=== PATIENT | male | born 1940 | race Caucasian/White ===

== ENCOUNTER 2020-05-07 09:03 | Day surgery (SDC) | payer OTHER, MEDICARE ==
[2020-05-06 11:17] VITALS: BMI 26.6
[2020-05-07 09:23] LABS: BASO % 0.5 % (0-2.0); EOS % 3.8 % (0-4.5); HEMATOCRIT 39.9 % (35.4-49); HEMOGLOBIN 13.7 GM/dL (11.7-16.9); LYMPH % 41.7 % (8-40); MCH 32.4 pg (25.7-33.7); MCHC 34.4 g/dl (32.0-35.9); MEAN CELL VOLUME 94.3 fl (80-96); MEAN PLT VOLUME 7.3 fl (7.5-11.1); MONO % 8.2 % (3.8-10.2); NEUT % 45.8 % (42.8-82.8); PLATELET COUNT 68 K/MM3 (134-434); RBC 4.24 M/mm3 (4.00-5.60); RDW 13.7 % (11.9-15.9); WHITE BLOOD COUNT 4.2 K/mm3 (4.0-10.0)
[2020-05-07 09:29] LABS: INR 0.99 (0.83-1.09); PROTHROMBIN TIME (PATIENT) 11.7 SEC (9.7-13.0)
[2020-05-07 13:40] VITALS: BP 170/78; PULSE 73; TEMP 97.7
--- NOTE | 2020-05-16 15:02 | PATH ---
Surgical Pathology Report Patient Name: ALEX LEGGETT [facility]. Rec. #: [id number] /Age/Gender: 1940 (Age: 80) / M Account: [id number] Location: RADIOLOGY INTER Taken: 05/07/2020 Received: 05/07/2020 Reported: 05/16/2020 Physicians: Rach Yun M.D. Specimen(s) Received A: BONE MARROW BIOPSY B: BONE MARROW CLOT C: BONE MARROW ASPIRATION SMEARS 13 SLIDES D: BONE MARROW BLOOD 2 LAVENDER 2 GREEN Clinical History Splenomegaly, decreased platelets count, rule out lymphoproliferative disorder, rule out myeloproliferative disorder Final Diagnosis BONE MARROW MORPHOLOGY performed and interpreted at [facility] shows the following: DIAGNOSIS: BONE MARROW, SITE NOT SPECIFIED, ASPIRATE SMEARS: - Paucispicular and hypocellular aspirate smears with trilineage hematopoiesis. Megakaryocytes are mildly increased. Lymphoid aggregates and atypical lymphoid cells are not identified. - Increased iron stores ADDENDUM (05-15-2020) BONE MARROW, BIOPSY AND ASPIRATE SMEARS: - Hypercellular marrow (ranging from ~50-80% cellularity) with maturing trilineage hematopoiesis and mild megakaryocytic hyperplasia -Atypical lymphoid infiltrate. See Comment - Plasma cels (<5%) are polytypic Comment: Overt dysplastic features are not seen in the myeloid and megakaryocytic cells. Occasional erythroid precursors exhibit nuclear budding (<10%). NOTE: The aspirate smears are prepared in-house, and prolonged exposure of cells to anticoagulant before smear preparation may hinder accurate morphologic analysis. Correlation with a morphologic examination of the core/clot biopsy specimen and freshly prepared bone marrow aspirate smears is recommended. Flow cytometry shows evidence of myelodyspoiesis, monocytic dyspoiesis (4%), and ~1% dyspoietic myeloblasts. 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 Pending cytogenetic and molecular studies will be helpful; a summary report will follow. ADDENDUM COMMENT (05-15-2020): Overt morphologic features diagnostic of a myelodysplastic syndrome or a myeloproliferative neoplasm are not identified; pending cytogenetic and molecular data will be helpful; a summary report will follow. Multiple, interstitial lymphoid aggregates are present comprising ~10% of marrow cellularity. They are a mixture of small B-cells and small T-cells, and are not diagnostic of an involvement by lymphoma. In addition, a few paratrabecular lymphoid aggregates are noted; these are atypical. 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 Therefore, an involvement by a B-cell lymphoma cannot be excluded. Correlation with relevant clinical and laboratory findings is recommended See [facility] report for additional details. IMMUNOGLOBULIN HEAVY CHAIN (IGH) GENE REARRANGEMENT by PCR ANALYSIS performed and interpreted at [facility] shows the following: RESULTS: Clonal B-cell population detected. INTERPRETATION: POSITIVE for a clonal IgH gene rearrangement. COMMENT: Positive results most often indicate a B-cell malignancy. Rarely, positive results may be seen in non-malignant conditions. Results should be interpreted in the context of clinical status and correlation with cytogenetics, morphology, flow cytometry, and immunophenotype.This analysis can detect abnormal populations comprising >1-2% of the total cells present in the sample. See [facility] report for additional details. FLOW CYTOMETRY performed and interpreted at [facility] ([id number]) shows the following: INTERPRETATION: BONE MARROW ASPIRATE: - Immunophenotypic evidence of myelodyspoiesis, monocytic dyspoiesis (4%), and ~1% dyspoietic myeloblasts. - A minor subset of the B-cells (<1% of total cells) co-expresses CD5 and CD23 and shows an excess of surface kappa light chain. - See Comment and Phenotype. COMMENT: Although the myeloid finding is non-specific, a myeloid neoplasm is in the differential. 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 Ancillary studies are pending (see below). The percent blasts determined by flow cytometry may not be accurate due to an unknown degree of hemodilutional effects and incomplete red cell lysis. Correlation with CBC data, peripheral blood smear review, flow cytometry of peripheral blood, and bone marrow morphology is recommended. PHENOTYPE: Based on CD45 vs side scatter gating the percentage of granulocytes, lymphocytes, monocytes, immature hematopoietic cells, and CD45 negative cells are provided in the dot plot shown below. The myeloid population shows abnormal maturational patterns with CD13/CD16 and CD33/CD13 and a subset is CD56(+). Approximately 1% of the cells express CD45 (dim), CD13, CD34, CD117, and HLA-DR, consistent with myeloblasts; a subset is CD56(+). Approximately 4% of the cells express CD45 (bright), CD14, and CD64, consistent with monocytes. They co-express CD56 and CD23. Of the total cells approximately 9% are T-cells, 1% B-cells, and 1% NK cells. The majority of the B-cells is polyclonal without atypical antigen expression. A minor subset co-expresses CD5 and CD23 and shows an excess of surface kappa expression. There is no significant hematogone population. The T-cells express all [place]way-T-cell antigens tested with CD4 > CD8 (3.3:1). Approximately 1% of the cells express CD3 and CD57, consistent with T-large granular lymphocytes. Based on few bright CD38+ cells, plasma cells are rare. See [facility] report for additional details. Electronically Signed Randy Rose M.D. Addendum Reported: 06/03/2020 Addendum Diagnosis IntelliGEN (R) Myeloid performed and interpreted at [facility], [place], [place] 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 Gene Variant Detected: ASXL1 c.1934 dupG EZH2 c.2068C>T SRSF2 c.284C>A See [facility] for additional details. CHROMOSOME ANALYSIS performed and interpreted at [facility], [place], [place] (Specimen #: [id number]) shows the following: RESULTS: 46,X,-Y,+12[5]/46,XY[15] Abnormal karyotype, male INTERPRETATION: Five of the twenty mitotic cells examined were characterized by loss of the Y chromosome and an additional copy of chromosome 12. No abnormalities were evident in the remaining fifteen cells. Loss of the Y chromosome is generally considered to be an age-related phenomenon without clinical significance; however, loss of the Y chromosome has been also reported as a clonal abnormality in myelodysplasia, acute myeloid leukemia and some lymphoproliferative disorders. Trisomy 12 is consistent with lymphoproliferative disorders including chronic lymphocytic leukemia, and non-Hodgkin lymphoma. See [facility] report for additional details. All reports faxed to Dr. Yun on 05/21/2020 and on 06/03/2020. Randy Rose M.D. Gross Description A. Received in formalin labeled "bone marrow biopsy," is a 0.6 x 0.5 x 0.1 cm aggregate of [place] bone fragments admixed with blood clot. The formalin is filtered and the specimen is entirely submitted in one cassette, following decalcification. B. Received in formalin labeled "bone marrow biopsy clot," is a 2.2 x 2.0 x 0.2 cm aggregate of red-brown blood clot. The formalin is filtered and the specimen is entirely submitted in one cassette. C. Received are 12 bone marrow aspiration smear slides. D. Received are 2 green top tubes and 2 lavender top tubes of bone marrow blood which are [facility]. __ KWS/05/07/2020 sharron/05/07/2020
== END 2020-05-07 13:50 | disposition home or self-care (01) ==
LOC: JRADIR 09:03
PROVIDERS: ATTEND Internal Medicine Hematology & Oncology
PROC: 07DR3ZX Extraction of Iliac Bone Marrow, Percutaneous Approach, Diagnostic (ICD-10-PCS; principal; 2020-05-07)
DX: D69.6 Thrombocytopenia, unspecified (principal)
CPT/HCPCS: 20225; 36415; 76098-TC-FY; 76380-TC; 85025; 85610; 87899; 88300-TC; 88305-TC; 88311-TC; 88313-TC

== ENCOUNTER 2020-10-23 04:23 | Day surgery (SDC) | payer OTHER, MEDICARE ==
[2020-10-22 12:54] VITALS: BMI 27.3
[~2020-10-23 04:23] MED LIST: BUPIVACAINE HCL/PF 0.5% (5 MG/ML) 30 ML VIAL IJ ONE; LIDOCAINE HCL 1%, 10 MG/ML (20ML VIAL) INF ONE
[2020-10-23] MEDS ORDERED: LIDOCAINE HCL 1%, 10 MG/ML (20ML VIAL) ONE (09:12)
[2020-10-23] MEDS ORDERED: MIDAZOLAM HCL 2 MG/2 ML SINGLE DOSE VIAL ONE (10:28)
[2020-10-23] MEDS ORDERED: PROPOFOL 20 ML ONE (10:29)
[2020-10-23] MEDS ORDERED: SUCCINYLCHOLINE CHLORIDE 200 MG/10 ML SYRINGE ONE (10:29)
[2020-10-23] MEDS ORDERED: BUPIVACAINE HCL/PF 0.5% (5 MG/ML) 30 ML VIAL IJ ONE (10:53)
[2020-10-23] MEDS ORDERED: LIDOCAINE HCL 1%, 10 MG/ML (20ML VIAL) INF ONE (10:53)
[2020-10-23] MEDS ORDERED: ACETAMINOPHEN 1000 MG/100 ML VIAL (NON FORMULARY) IVPB ONE ×2 (11:51→12:00)
[2020-10-23] MEDS ORDERED: ONDANSETRON 4 MG/2 ML VIAL IVPUSH PRN (11:54)
[2020-10-23] MEDS ORDERED: oxyCODONE HCL 5 MG TABLET PO PRN (11:54)
[2020-10-23] MEDS ORDERED: ACETAMINOPHEN INJECTION 100 ML IVPB ONE (11:57)
[2020-10-23] MEDS ORDERED: LACTATED RINGERS SOLUTION 1,000 ML IV SCH (12:00)
[2020-10-23 13:07] VITALS: BP 123/52; PULSE 69; TEMP 97.7
== END 2020-10-23 13:45 | disposition home or self-care (01) ==
LOC: JASU-SURG 04:23
PROVIDERS: ATTEND Surgery
PROC: 07BJ0ZX Excision of Left Inguinal Lymphatic, Open Approach, Diagnostic (ICD-10-PCS; principal; 2020-10-23 10:30)
DX: C82.15 Follicular lymphoma grade II, lymph nodes of inguinal region and lower limb (principal)
CPT/HCPCS: 94760; J0131

== ENCOUNTER 2021-01-13 07:15 | Day surgery (SDC) | payer OTHER, MEDICARE ==
[2021-01-13] MEDS ORDERED: SODIUM CHLORIDE 600 ML IV ONE (11:15)
[2021-01-13 17:29] VITALS: BP 146/74; PULSE 78; TEMP 98.3
== END 2021-01-13 17:10 | disposition home or self-care (01) ==
LOC: JONCCHEMO 07:15
PROVIDERS: ATTEND Internal Medicine Hematology & Oncology
PROC: 3E0337Z Introduction of Electrolytic and Water Balance Substance into Peripheral Vein, Percutaneous Approach (ICD-10-PCS; principal; 2021-01-13)
DX: C82.90 Follicular lymphoma, unspecified, unspecified site (principal); Z76.89 Persons encountering health services in other specified circumstances
CPT/HCPCS: 96360; 96361; C9803; U0003; U0005

== ENCOUNTER 2021-01-14 06:53 | Day surgery (SDC) | payer OTHER, MEDICARE ==
[2021-01-14] MEDS ORDERED: SODIUM CHLORIDE 500 ML IV STA ×2 (08:53→08:57)
[2021-01-14 09:15] LABS: BASO % 0.3 % (0-2.0); EOS % 4.1 % (0-4.5); HEMATOCRIT 35.9 % (35.4-49); HEMOGLOBIN 12.2 GM/dL (11.7-16.9); LYMPH % 54.9 % (8-40); MCHC 33.9 g/dl (32.0-35.9); MEAN CELL VOLUME 94.4 fl (80-96); MONO % 7.8 % (3.8-10.2); NEUT % 32.9 % (42.8-82.8); PLATELET COUNT 79 K/MM3 (134-434); RDW 14.3 % (11.9-15.9); WHITE BLOOD COUNT 6.3 K/mm3 (4.0-10.0)
[2021-01-14 09:33] LABS: POTASSIUM 4.1 mmol/L (3.5-5.1)
[2021-01-14 09:36] LABS: ALBUMIN 3.8 g/dl (3.4-5.0); BLOOD UREA NITROGEN 20.8 mg/dL (7-18); CALCIUM 8.9 mg/dL (8.5-10.1)
[2021-01-14 09:41] LABS: BILIRUBIN,TOTAL 0.5 mg/dL (0.2-1); TOT PROT 7.5 g/dl (6.4-8.2)
[2021-01-14] MEDS ORDERED: DEXAMETHASONE SODIUM PHOSPHATE 20 MG, DIPHENHYDRAMINE 25 MG in SODIUM CHLORIDE 100 ML IVPB ONE (10:00)
[2021-01-14] MEDS ORDERED: ACETAMINOPHEN 325 MG TABLET (FP) PO ONE (10:00)
[2021-01-14] MEDS ORDERED: RITUXIMAB ABBS IVPB ONE (10:30)
[2021-01-14] MEDS ORDERED: SODIUM CHLORIDE IVPB ONE (10:30)
[2021-01-14 11:29] LABS: URIC ACID 3.8 mg/dL (2.6-7.2)
[2021-01-14 15:05] VITALS: TEMP 98.3
[2021-01-14 15:14] VITALS: BP 134/59; PULSE 82
== END 2021-01-14 13:50 | disposition home or self-care (01) ==
LOC: JONCNONCHE 06:53
PROVIDERS: ATTEND Internal Medicine Hematology & Oncology
DX: Z51.11 Encounter for antineoplastic chemotherapy (principal); C82.90 Follicular lymphoma, unspecified, unspecified site
CPT/HCPCS: 36415; 80053; 83615; 84550; 85025; 96367; 96413; 96415; Q5115

== ENCOUNTER 2021-01-15 10:58 | Day surgery (SDC) | payer OTHER, MEDICARE ==
[~2021-01-15 10:58] MED LIST changes: -BUPIVACAINE HCL/PF 0.5% (5 MG/ML) 30 ML VIAL IJ ONE; -LIDOCAINE HCL 1%, 10 MG/ML (20ML VIAL) INF ONE; +SODIUM CHLORIDE 500 ML IV STA
[2021-01-15 11:25] LABS: POTASSIUM 5.5 mmol/L (3.5-5.1)
[2021-01-15 11:26] LABS: BLOOD UREA NITROGEN 25.2 mg/dL (7-18); CALCIUM 9.1 mg/dL (8.5-10.1)
[2021-01-15 11:30] LABS: URIC ACID 4.5 mg/dL (2.6-7.2)
[2021-01-15 14:10] LABS: POTASSIUM 4.1 mmol/L (3.5-5.1)
[2021-01-15 14:12] LABS: CALCIUM 8.9 mg/dL (8.5-10.1)
[2021-01-15 14:13] LABS: ALBUMIN 3.6 g/dl (3.4-5.0)
[2021-01-15 14:16] LABS: CREATININE 1.1 mg/dL (0.55-1.3)
[2021-01-15 14:17] LABS: BILIRUBIN,TOTAL 0.4 mg/dL (0.2-1); TOT PROT 6.9 g/dl (6.4-8.2)
[2021-01-15 14:43] VITALS: TEMP 98.4
[2021-01-15 14:44] VITALS: BP 163/76; PULSE 80
== END 2021-01-15 14:40 | disposition home or self-care (01) ==
LOC: JONCNONCHE 10:58
PROVIDERS: ATTEND Internal Medicine Hematology & Oncology
PROC: 3E0337Z Introduction of Electrolytic and Water Balance Substance into Peripheral Vein, Percutaneous Approach (ICD-10-PCS; principal; 2021-01-15)
DX: C82.90 Follicular lymphoma, unspecified, unspecified site (principal); Z76.89 Persons encountering health services in other specified circumstances
CPT/HCPCS: 36415; 80048; 80053; 83615; 84550; 96360; 96361

== ENCOUNTER 2021-01-16 06:44 | Day surgery (SDC) | payer OTHER, MEDICARE ==
[2021-01-16] MEDS ORDERED: SODIUM CHLORIDE 1,000 ML IV SCH (06:45)
[2021-01-16 09:13] LABS: BASO % 0.2 % (0-2.0); EOS % 0.5 % (0-4.5); HEMATOCRIT 35.8 % (35.4-49); HEMOGLOBIN 12.2 GM/dL (11.7-16.9); LYMPH % 57.4 % (8-40); MEAN CELL VOLUME 93.9 fl (80-96); MEAN PLT VOLUME 7.6 fl (7.5-11.1); MONO % 8.8 % (3.8-10.2); NEUT % 33.1 % (42.8-82.8); PLATELET COUNT 114 K/MM3 (134-434); RBC 3.81 M/mm3 (4.00-5.60); RDW 14.6 % (11.9-15.9); WHITE BLOOD COUNT 7.8 K/mm3 (4.0-10.0)
[2021-01-16 09:37] LABS: ALBUMIN 3.8 g/dl (3.4-5.0); BLOOD UREA NITROGEN 25.4 mg/dL (7-18); CALCIUM 9.1 mg/dL (8.5-10.1)
[2021-01-16 09:40] LABS: URIC ACID 4.4 mg/dL (2.6-7.2)
[2021-01-16 09:42] LABS: BILIRUBIN,TOTAL 0.3 mg/dL (0.2-1); TOT PROT 7.3 g/dl (6.4-8.2)
[2021-01-16] MEDS ORDERED: RASBURICASE 6 MG in SODIUM CHLORIDE 50 ML IVPB ONE (09:45)
[2021-01-16 10:26] LABS: ANISOCYTOSIS 0; MACROCYTOSIS 0; PLATELET ESTIMATE DECREASED
[2021-01-16] MEDS ORDERED: ACETAMINOPHEN 325 MG TABLET (FP) PO ONE (13:30)
[2021-01-16] MEDS ORDERED: DEXAMETHASONE INJECTION 20 MG, DIPHENHYDRAMINE 25 MG in SODIUM CHLORIDE 100 ML IVPUSH ONE (13:30)
[2021-01-16] MEDS ORDERED: SODIUM CHLORIDE IVPB ONE (14:00)
[2021-01-16] MEDS ORDERED: RITUXIMAB ABBS IVPB ONE (14:00)
[2021-01-16] MEDS ORDERED: amLODIPine BESYLATE 2.5 MG TABLET (FP) PO SCH (17:45)
[2021-01-16 17:53] VITALS: BP 160/72; PULSE 81; TEMP 97.9
== END 2021-01-16 18:13 | disposition home or self-care (01) ==
LOC: JONCNONCHE 06:44
PROVIDERS: ATTEND Internal Medicine Hematology & Oncology
DX: Z51.11 Encounter for antineoplastic chemotherapy (principal); C82.90 Follicular lymphoma, unspecified, unspecified site
CPT/HCPCS: 36415; 80053; 82955; 83615; 84100; 84550; 85025; 96361; 96367; 96413; 96415; J1100; Q5115

== ENCOUNTER 2021-01-19 06:41 | Day surgery (SDC) | payer OTHER, MEDICARE ==
[2021-01-19] MEDS ORDERED: SODIUM CHLORIDE 500 ML IV ONE (09:00)
[2021-01-19 09:01] LABS: BASO % 0.3 % (0-2.0); EOS % 0.9 % (0-4.5); HEMATOCRIT 37.5 % (35.4-49); LYMPH % 60.7 % (8-40); MCH 32.7 pg (25.7-33.7); MCHC 34.7 g/dl (32.0-35.9); MEAN CELL VOLUME 94.1 fl (80-96); MEAN PLT VOLUME 7.1 fl (7.5-11.1); MONO % 7.4 % (3.8-10.2); NEUT % 30.7 % (42.8-82.8); PLATELET COUNT 117 K/MM3 (134-434); RBC 3.99 M/mm3 (4.00-5.60); RDW 14.3 % (11.9-15.9); WHITE BLOOD COUNT 6.9 K/mm3 (4.0-10.0)
[2021-01-19 09:22] LABS: CALCIUM 9.2 mg/dL (8.5-10.1); MAGNESIUM 2.1 mg/dL (1.8-2.4)
[2021-01-19 09:24] LABS: BLOOD UREA NITROGEN 26.9 mg/dL (7-18)
[2021-01-19 09:25] LABS: CREATININE 1.1 mg/dL (0.55-1.3)
[2021-01-19 09:26] LABS: URIC ACID 2.8 mg/dL (2.6-7.2)
[2021-01-19 09:27] LABS: BILIRUBIN,TOTAL 0.4 mg/dL (0.2-1); PHOSPHOROUS 4.6 mg/dL (2.5-4.9); TOT PROT 7.4 g/dl (6.4-8.2)
[2021-01-19] MEDS ORDERED: ACETAMINOPHEN 325 MG TABLET (FP) PO ONE ×2 (09:30)
[2021-01-19] MEDS ORDERED: DEXAMETHASONE SODIUM PHOSPHATE 12 MG, DIPHENHYDRAMINE 25 MG in SODIUM CHLORIDE 100 ML IVPB ONE (09:30)
[2021-01-19] MEDS ORDERED: DEXAMETHASONE SODIUM PHOSPHATE 20 MG, DIPHENHYDRAMINE 25 MG in SODIUM CHLORIDE 100 ML IVPB ONE (09:30)
[2021-01-19] MEDS ORDERED: SODIUM CHLORIDE IVPB ONE (10:00)
[2021-01-19] MEDS ORDERED: RITUXIMAB-ABBS 500 MG, RITUXIMAB-ABBS 190 MG in SODIUM CHLORIDE 621 ML IVPB ONE (10:00)
[2021-01-19] MEDS ORDERED: RITUXIMAB ABBS IVPB ONE (10:00)
[2021-01-19 12:42] LABS: ANISOCYTOSIS 1+; MACROCYTOSIS 0; OVALOCYTE 1+; PLATELET ESTIMATE DECREASED
[2021-01-19 17:21] VITALS: TEMP 97.9
[2021-01-19 17:33] VITALS: BP 136/69; PULSE 71
== END 2021-01-19 16:30 | disposition home or self-care (01) ==
LOC: JONCCHEMO 06:41
PROVIDERS: ATTEND Internal Medicine Hematology & Oncology
PROC: 3E0337Z Introduction of Electrolytic and Water Balance Substance into Peripheral Vein, Percutaneous Approach (ICD-10-PCS; principal; 2021-01-19)
PROC: 3E03305 Introduction of Other Antineoplastic into Peripheral Vein, Percutaneous Approach (ICD-10-PCS; 2021-01-19)
PROC: 3E0333Z Introduction of Anti-inflammatory into Peripheral Vein, Percutaneous Approach (ICD-10-PCS; 2021-01-19)
DX: C82.90 Follicular lymphoma, unspecified, unspecified site (principal); Z76.89 Persons encountering health services in other specified circumstances
CPT/HCPCS: 36415; 80053; 83615; 83735; 84100; 84550; 85025; 96361; 96367; 96413; 96415; Q5115

== ENCOUNTER 2021-01-28 07:46 | Day surgery (SDC) | payer OTHER, MEDICARE ==
[2021-01-21 09:54] LABS: BASO % 0.2 % (0-2.0); EOS % 0.2 % (0-4.5); HEMOGLOBIN 13.5 GM/dL (11.7-16.9); LYMPH % 58.4 % (8-40); MCH 32.5 pg (25.7-33.7); MCHC 34.6 g/dl (32.0-35.9); MEAN CELL VOLUME 93.7 fl (80-96); MEAN PLT VOLUME 7.1 fl (7.5-11.1); NEUT % 34.2 % (42.8-82.8); PLATELET COUNT 148 K/MM3 (134-434); RBC 4.16 M/mm3 (4.00-5.60); RDW 14.7 % (11.9-15.9); WHITE BLOOD COUNT 9.6 K/mm3 (4.0-10.0)
[2021-01-21 10:17] LABS: ALBUMIN 3.9 g/dl (3.4-5.0); BLOOD UREA NITROGEN 28.4 mg/dL (7-18); CALCIUM 9.2 mg/dL (8.5-10.1)
[2021-01-21 10:22] LABS: BILIRUBIN,TOTAL 0.5 mg/dL (0.2-1); TOT PROT 7.5 g/dl (6.4-8.2)
[2021-01-21 12:06] LABS: ANISOCYTOSIS 0; HELMET CELLS 0; HOWELL-JOLLY BODIES 0; MACROCYTOSIS 0; OVALOCYTE 0; PLATELET ESTIMATE DECREASED; ROULEAU 0; SICKELED CELLS 0; TARGET CELLS 0; TEAR DROP CELLS 0; TOXIC GRANULATION 0
[2021-01-28] MEDS ORDERED: SODIUM CHLORIDE 600 ML IV STA (08:50)
[2021-01-28 09:13] LABS: BASO % 0.4 % (0-2.0); EOS % 0.8 % (0-4.5); HEMATOCRIT 38.9 % (35.4-49); HEMOGLOBIN 13.4 GM/dL (11.7-16.9); LYMPH % 39.4 % (8-40); MCH 32.2 pg (25.7-33.7); MCHC 34.4 g/dl (32.0-35.9); MEAN CELL VOLUME 93.7 fl (80-96); MEAN PLT VOLUME 7.7 fl (7.5-11.1); MONO % 6.3 % (3.8-10.2); NEUT % 53.1 % (42.8-82.8); PLATELET COUNT 83 K/MM3 (134-434); RBC 4.15 M/mm3 (4.00-5.60); RDW 14.6 % (11.9-15.9); WHITE BLOOD COUNT 9.4 K/mm3 (4.0-10.0)
[2021-01-28] MEDS ORDERED: DEXAMETHASONE SODIUM PHOSPHATE 12 MG, DIPHENHYDRAMINE 25 MG in SODIUM CHLORIDE 100 ML IVPB ONE (09:30)
[2021-01-28] MEDS ORDERED: ACETAMINOPHEN 325 MG TABLET (FP) PO ONE (09:30)
[2021-01-28 09:41] LABS: ALBUMIN 4.1 g/dl (3.4-5.0); BLOOD UREA NITROGEN 22.9 mg/dL (7-18); MAGNESIUM 2.1 mg/dL (1.8-2.4)
[2021-01-28 09:43] LABS: PHOSPHOROUS 3.6 mg/dL (2.5-4.9)
[2021-01-28 09:44] LABS: BILIRUBIN,TOTAL 0.5 mg/dL (0.2-1); CREATININE 1.1 mg/dL (0.55-1.3); TOT PROT 7.3 g/dl (6.4-8.2)
[2021-01-28] MEDS ORDERED: SODIUM CHLORIDE IVPB ONE (10:00)
[2021-01-28] MEDS ORDERED: RITUXIMAB ABBS IVPB ONE (10:00)
[2021-01-28 17:17] VITALS: BP 107/53; PULSE 76
[2021-01-29 13:43] VITALS: TEMP 98.4
== END 2021-01-28 16:45 | disposition home or self-care (01) ==
LOC: JONCNONCHE 07:46
PROVIDERS: ATTEND Internal Medicine Hematology & Oncology
DX: Z51.11 Encounter for antineoplastic chemotherapy (principal); C82.90 Follicular lymphoma, unspecified, unspecified site
CPT/HCPCS: 36415; 80053; 83615; 83735; 84100; 84550; 85025; 96361; 96367; 96413; 96415; Q5115

== ENCOUNTER 2021-01-29 08:42 | Day surgery (SDC) | payer OTHER, MEDICARE ==
[2021-01-29] MEDS ORDERED: SODIUM CHLORIDE 600 ML IV STA (08:49)
[2021-01-29] MEDS ORDERED: ACETAMINOPHEN 325 MG TABLET (FP) PO ONE (09:00)
[2021-01-29] MEDS ORDERED: DEXAMETHASONE SODIUM PHOSPHATE 12 MG, DIPHENHYDRAMINE 25 MG in SODIUM CHLORIDE 100 ML IVPB ONE (09:00)
[2021-01-29] MEDS ORDERED: RITUXIMAB ABBS IVPB ONE (09:30)
[2021-01-29] MEDS ORDERED: SODIUM CHLORIDE IVPB ONE (09:30)
[2021-01-29 10:02] LABS: BASO % 0.1 % (0-2.0); HEMOGLOBIN 12.3 GM/dL (11.7-16.9); LYMPH % 23.6 % (8-40); MCH 32.7 pg (25.7-33.7); MCHC 35.2 g/dl (32.0-35.9); MEAN CELL VOLUME 92.9 fl (80-96); MEAN PLT VOLUME 7.9 fl (7.5-11.1); MONO % 7.3 % (3.8-10.2); PLATELET COUNT 81 K/MM3 (134-434); RBC 3.77 M/mm3 (4.00-5.60); RDW 14.8 % (11.9-15.9); WHITE BLOOD COUNT 8.2 K/mm3 (4.0-10.0)
[2021-01-29 10:26] LABS: ALBUMIN 3.7 g/dl (3.4-5.0); BLOOD UREA NITROGEN 21.1 mg/dL (7-18); CALCIUM 8.9 mg/dL (8.5-10.1)
[2021-01-29 10:27] LABS: MAGNESIUM 1.9 mg/dL (1.8-2.4)
[2021-01-29 10:29] LABS: CREATININE 1.1 mg/dL (0.55-1.3); PHOSPHOROUS 2.2 mg/dL (2.5-4.9)
[2021-01-29 10:30] LABS: BILIRUBIN,TOTAL 0.5 mg/dL (0.2-1)
[2021-01-29 17:41] VITALS: TEMP 98.2
[2021-01-29 18:00] VITALS: BP 152/68; PULSE 78
== END 2021-01-29 15:30 | disposition home or self-care (01) ==
LOC: JONCNONCHE 08:42
PROVIDERS: ATTEND Internal Medicine Hematology & Oncology
DX: Z51.11 Encounter for antineoplastic chemotherapy (principal); C82.90 Follicular lymphoma, unspecified, unspecified site
CPT/HCPCS: 36415; 80053; 83615; 83735; 84100; 84550; 85025; 96360; 96361; 96367; 96413; Q5115

== ENCOUNTER 2021-02-05 07:15 | Day surgery (SDC) | payer OTHER, MEDICARE ==
[2021-02-05] MEDS ORDERED: SODIUM CHLORIDE 1,000 ML IV STA (09:13)
[2021-02-05 09:18] LABS: BASO % 0.2 % (0-2.0); EOS % 0.9 % (0-4.5); HEMOGLOBIN 13.1 GM/dL (11.7-16.9); LYMPH % 57.4 % (8-40); MCHC 34.4 g/dl (32.0-35.9); MEAN CELL VOLUME 93.1 fl (80-96); MEAN PLT VOLUME 7.8 fl (7.5-11.1); MONO % 7.8 % (3.8-10.2); NEUT % 33.7 % (42.8-82.8); PLATELET COUNT 93 K/MM3 (134-434); RBC 4.08 M/mm3 (4.00-5.60); RDW 14.7 % (11.9-15.9); WHITE BLOOD COUNT 7.7 K/mm3 (4.0-10.0)
[2021-02-05 09:26] LABS: ALBUMIN 3.8 g/dl (3.4-5.0); BLOOD UREA NITROGEN 21.1 mg/dL (7-18); CALCIUM 8.6 mg/dL (8.5-10.1)
[2021-02-05 09:29] LABS: CREATININE 1.2 mg/dL (0.55-1.3); PHOSPHOROUS 3.3 mg/dL (2.5-4.9); URIC ACID 4.9 mg/dL (2.6-7.2)
[2021-02-05 09:30] LABS: BILIRUBIN,TOTAL 0.6 mg/dL (0.2-1); TOT PROT 7.2 g/dl (6.4-8.2)
[2021-02-05] MEDS ORDERED: ACETAMINOPHEN 325 MG TABLET (FP) PO ONE (10:15)
[2021-02-05] MEDS ORDERED: DEXAMETHASONE SODIUM PHOSPHATE 12 MG, DIPHENHYDRAMINE 25 MG in SODIUM CHLORIDE 100 ML IVPB ONE (10:30)
[2021-02-05] MEDS ORDERED: RITUXIMAB-ABBS 500 MG, RITUXIMAB-ABBS 175 MG in SODIUM CHLORIDE 607.5 ML IVPB ONE (11:00)
[2021-02-05 11:33] LABS: ANISOCYTOSIS 0; MACROCYTOSIS 0; PLATELET ESTIMATE DECREASED
[2021-02-05 16:52] VITALS: TEMP 98.2
[2021-02-05 17:15] VITALS: BP 136/67; PULSE 85
== END 2021-02-05 17:12 | disposition home or self-care (01) ==
LOC: JONCCHEMO 07:15
PROVIDERS: ATTEND Internal Medicine Hematology & Oncology
DX: Z51.11 Encounter for antineoplastic chemotherapy (principal); C82.90 Follicular lymphoma, unspecified, unspecified site
CPT/HCPCS: 36415; 80053; 83615; 84100; 84550; 85025; 96361; 96367; 96413; 96415; Q5115

== ENCOUNTER 2021-02-12 07:36 | Day surgery (SDC) | payer OTHER, MEDICARE ==
[2021-02-12 09:15] LABS: BASO % 0.3 % (0-2.0); HEMATOCRIT 37.3 % (35.4-49); HEMOGLOBIN 13.1 GM/dL (11.7-16.9); LYMPH % 55.8 % (8-40); MCH 32.6 pg (25.7-33.7); MCHC 35.2 g/dl (32.0-35.9); MEAN CELL VOLUME 92.7 fl (80-96); MEAN PLT VOLUME 7.3 fl (7.5-11.1); MONO % 5.6 % (3.8-10.2); NEUT % 37.3 % (42.8-82.8); PLATELET COUNT 105 K/MM3 (134-434); RBC 4.03 M/mm3 (4.00-5.60); RDW 15.3 % (11.9-15.9); WHITE BLOOD COUNT 7.2 K/mm3 (4.0-10.0)
[2021-02-12] MEDS ORDERED: DEXAMETHASONE SODIUM PHOSPHATE 12 MG, DIPHENHYDRAMINE 25 MG in SODIUM CHLORIDE 100 ML IVPB ONE (09:30)
[2021-02-12] MEDS ORDERED: ACETAMINOPHEN 325 MG TABLET (FP) PO ONE (09:30)
[2021-02-12] MEDS ORDERED: SODIUM CHLORIDE 750 ML IV STA (09:41)
[2021-02-12 09:46] LABS: ALBUMIN 4.2 g/dl (3.4-5.0); BLOOD UREA NITROGEN 25.5 mg/dL (7-18); CALCIUM 8.7 mg/dL (8.5-10.1)
[2021-02-12 09:49] LABS: CREATININE 1.1 mg/dL (0.55-1.3); URIC ACID 4.9 mg/dL (2.6-7.2)
[2021-02-12 09:51] LABS: TOT PROT 7.1 g/dl (6.4-8.2)
[2021-02-12 09:55] LABS: BILIRUBIN,TOTAL 0.5 mg/dL (0.2-1)
[2021-02-12] MEDS ORDERED: RITUXIMAB-ABBS 500 MG, RITUXIMAB-ABBS 175 MG in SODIUM CHLORIDE 607.5 ML IVPB ONE (10:00)
[2021-02-12 16:41] VITALS: PULSE 70
[2021-02-12 16:43] VITALS: BP 141/68; TEMP 97.9
[2021-02-13 14:08] LABS: HEP B CORE AB, TOT Negative (Negative)
== END 2021-02-12 16:30 | disposition home or self-care (01) ==
LOC: JONCCHEMO 07:36
PROVIDERS: ATTEND Internal Medicine Hematology & Oncology
DX: Z51.11 Encounter for antineoplastic chemotherapy (principal); C82.90 Follicular lymphoma, unspecified, unspecified site
CPT/HCPCS: 36415; 80053; 83615; 84550; 85025; 86704; 86706; 86707; 86708; 86709; 86803; 87340; 96361; 96367; 96413; 96415; Q5115

== ENCOUNTER 2021-10-12 12:05 | Emergency (ER) | payer OTHER, MEDICARE ==
[2021-10-12] MEDS ORDERED: SOTROVIMAB 500 MG in SODIUM CHLORIDE 100 ML IVPB ONE (12:12)
[2021-10-12 12:14] VITALS: BP 153/66; PULSE 83; TEMP 98.1; BMI 26.6
[2021-10-12 13:32] LABS: HEMATOCRIT 38.8 % (35.4-49); HEMOGLOBIN 13.2 GM/dL (11.7-16.9); MCH 32.5 pg (25.7-33.7); MCHC 34.1 g/dl (32.0-35.9); MEAN CELL VOLUME 95.3 fl (80-96); MEAN PLT VOLUME 8.1 fl (7.5-11.1); PLATELET COUNT 65 10^3/uL (134-434); RBC 4.07 M/mm3 (4.00-5.60); RDW 13.2 % (11.9-15.9); WHITE BLOOD COUNT 4.1 K/mm3 (4.0-10.0)
[2021-10-12 14:02] LABS: BLOOD UREA NITROGEN 25.6 mg/dL (7-18); CALCIUM 8.8 mg/dL (8.5-10.1)
[2021-10-12 14:08] LABS: BILIRUBIN,TOTAL 0.6 mg/dL (0.2-1)
[2021-10-12 14:09] LABS: CREATININE 1.3 mg/dL (0.55-1.3)
[2021-10-12 14:11] LABS: TOT PROT 7.6 g/dl (6.4-8.2)
[2021-10-12 14:44] LABS: ANISOCYTOSIS 0; HELMET CELLS 0; HOWELL-JOLLY BODIES 0; MACROCYTOSIS 0; OVALOCYTE 0; PLATELET ESTIMATE DECREASED; ROULEAU 0; SICKELED CELLS 0; TARGET CELLS 0; TEAR DROP CELLS 0; TOXIC GRANULATION 0
[2021-10-12 15:36] LABS: EPI CELLS 6 /uL (0-25.1); HYALINE CASTS 5 /uL (0-3.1); PH,URINE 5.5 (5.0-8.0); URINE APPEARANCE CLEAR; URINE BACTERIA 2 /uL (0-1359); URINE BILIRUBIN NEGATIVE (NEGATIVE); URINE COLOR YELLOW; URINE GLUCOSE (UA) NEGATIVE (NEGATIVE); URINE KETONE NEGATIVE (NEGATIVE); URINE LEUK ESTERASE NEGATIVE (NEGATIVE); URINE NITRITE NEGATIVE (NEGATIVE); URINE PROTEIN 1+ (NEGATIVE); URINE RBC 21 /uL (0-23.9); URINE UROBILINOGEN 0.2 mg/dL (0.2-1.0); URINE WBC 3 /uL (0-25.8)
[2021-10-14 08:11] LABS: IGA IMMUNOGLOBULIN 211 mg/dL (61-437); IGG QN IMMUNOGLOBULIN 813 mg/dL (603-1613); IGM QN SERUM 56 mg/dL (15-143)
== END 2021-10-12 16:12 | disposition home or self-care (01) ==
LOC: JCOVINFU 12:05
DX: U07.1 COVID-19 (principal)
CPT/HCPCS: 36415; 80053; 81003; 82784; 85025; 87040; 87070; 87086; 99284-25; M0247; Q0247

== ENCOUNTER 2021-10-14 12:09 | Emergency (ER) | payer OTHER, MEDICARE ==
[2021-10-14 12:47] VITALS: BP 152/80; PULSE 87; TEMP 98; BMI 26.3
[2021-10-14 15:27] LABS: BASO % 0.2 % (0-2.0); EOS % 0.5 % (0-4.5); HEMATOCRIT 37.2 % (35.4-49); HEMOGLOBIN 12.6 GM/dL (11.7-16.9); LYMPH % 34.1 % (8-40); MCH 32.3 pg (25.7-33.7); MCHC 33.8 g/dl (32.0-35.9); MEAN CELL VOLUME 95.4 fl (80-96); MEAN PLT VOLUME 7.8 fl (7.5-11.1); MONO % 12.6 % (3.8-10.2); NEUT % 52.6 % (42.8-82.8); PLATELET COUNT 86 10^3/uL (134-434); RDW 12.8 % (11.9-15.9); WHITE BLOOD COUNT 6.4 K/mm3 (4.0-10.0)
[2021-10-14 15:47] LABS: CALCIUM 9.2 mg/dL (8.5-10.1)
[2021-10-14 15:48] LABS: BLOOD UREA NITROGEN 27.4 mg/dL (7-18)
[2021-10-14 15:51] LABS: CREATININE 1.1 mg/dL (0.55-1.3)
[2021-10-14 15:52] LABS: BILIRUBIN,TOTAL 0.4 mg/dL (0.2-1); TOT PROT 7.4 g/dl (6.4-8.2)
[2021-10-14 16:37] LABS: EPI CELLS 3 /uL (0-25.1); HYALINE CASTS 4 /uL (0-3.1); PH,URINE 5.5 (5.0-8.0); URINE APPEARANCE CLEAR; URINE BACTERIA 0 /uL (0-1359); URINE BILIRUBIN NEGATIVE (NEGATIVE); URINE COLOR YELLOW; URINE GLUCOSE (UA) NEGATIVE (NEGATIVE); URINE KETONE TRACE (NEGATIVE); URINE LEUK ESTERASE NEGATIVE (NEGATIVE); URINE NITRITE NEGATIVE (NEGATIVE); URINE PROTEIN 1+ (NEGATIVE); URINE RBC 38 /uL (0-23.9); URINE UROBILINOGEN 0.2 mg/dL (0.2-1.0); URINE WBC 5 /uL (0-25.8)
== END 2021-10-14 17:25 | disposition home or self-care (01) ==
LOC: JERFT 12:09 → JER 12:09 → JERFT 17:25
DX: U07.1 COVID-19 (principal); Z85.72 Personal history of non-Hodgkin lymphomas
CPT/HCPCS: 36415; 71046-TC-FY; 80053; 81003; 85025; 87086; 87804; 93005; 93010; 99285-25; C9803; U0003; U0005

== ENCOUNTER 2021-12-28 18:25 | Emergency (ER) | payer OTHER, MEDICARE ==
[2021-12-28 18:32] VITALS: TEMP 97.2; BMI 27.1
[2021-12-28] MEDS ORDERED: ACETAMINOPHEN 325 MG TABLET (FP) PO ONE (19:26)
[2021-12-28] MEDS ORDERED: ACETAMINOPHEN 325 MG TABLET (FP) ONE (19:30)
[2021-12-28 22:39] VITALS: BP 172/81; PULSE 90
== END 2021-12-28 22:40 | disposition home or self-care (01) ==
LOC: JER 18:25
DX: M25.561 Pain in right knee (principal)
CPT/HCPCS: 72170-TC-FY; 73502-TC-RT-FY; 73562-TC-RT-FY; 73700-TC-RT; 99284-25

== ENCOUNTER 2022-07-22 04:40 | Day surgery (SDC) | payer OTHER, MEDICARE ==
[2022-07-22] MEDS ORDERED: MIDAZOLAM HCL 2 MG/2 ML SINGLE DOSE VIAL ONE (10:52)
[2022-07-22] MEDS ORDERED: SODIUM CHLORIDE 500 ML IV ONE (11:15)
[2022-07-22] MEDS ORDERED: MIDAZOLAM HCL 2 MG/2 ML SINGLE DOSE VIAL IVPUSH ONE ×2 (11:24→11:38)
[2022-07-22 12:32] VITALS: RESP 18; TEMP 99.2
[2022-07-22 14:39] VITALS: BP 141/69; PULSE 88
== END 2022-07-22 14:10 | disposition home or self-care (01) ==
LOC: JRADIR 04:40
PROVIDERS: ATTEND Internal Medicine Hematology & Oncology
PROC: 07DR3ZX Extraction of Iliac Bone Marrow, Percutaneous Approach, Diagnostic (ICD-10-PCS; principal; 2022-07-22)
DX: D46.9 Myelodysplastic syndrome, unspecified (principal)
CPT/HCPCS: 20225; 88300-TC